=== PATIENT | male | born 1960 | race American Indian/Alaskan Native ===

== ENCOUNTER 2017-05-13 22:59 | Observation (INO) | payer OTHER ==
[2017-05-13 23:00] VITALS: BMI 36.3
--- NOTE | 2017-05-13 23:09 | ED PDOC ---
Arrival/HPI - General Time Seen by Provider: 05/13/17 23:04 Historian: Patient - History of Present Illness Narrative History of Present Illness (Text): 05/13/17 23:09 Ely Hines is a 57 year old male smoker, whose past medical history includes hyperlipidemia, who presents to the ED complaining of chest tightness for the past week. Patient states chest tightness is worsened with exertion, notes he took 1 nitroglycerin prior to arrival. Patient denies any shortness of breath, fever, chills, nausea, vomiting, diarrhea, neck pain, headache, dizziness, or any other complaints. PMD: Dr. Geena Hidalgo Time/Duration: 1 week Symptom Onset: Gradual Symptom Course: Unchanged Activities at Onset: Light Context: Home Past Medical History - Provider Review Nursing Documentation Reviewed: Yes - Infectious Disease Hx of Infectious Diseases: None - Tetanus Immunization Tetanus Immunization: Unknown - Psychiatric Hx Substance Use: No Family/Social History - Physician Review Nursing Documentation Reviewed: Yes Family/Social History: Unknown Family HX Smoking Status: Light Smoker < 10 Cigarettes Daily Hx Alcohol Use: No Hx Substance Use: No Allergies/Home Meds Allergies/Adverse Reactions: Allergies No Known Allergies Allergy (Verified 09/23/13 13:51) Home Medications: Home Meds Medication Instructions Recorded Confirmed Unobtainable 05/13/17 05/13/17 Review of Systems - Physician Review All systems were reviewed & negative as marked: Yes - Review of Systems Constitutional: Normal. absent: Fevers Eyes: Normal ENT: Normal Respiratory: Normal. absent: SOB, Cough Cardiovascular: Chest Pain Gastrointestinal: Normal. absent: Abdominal Pain, Diarrhea, Nausea, Vomiting Genitourinary Male: Normal. absent: Dysuria, Frequency, Hematuria, Urinary Output Changes Musculoskeletal: Normal. absent: Back Pain, Neck Pain Skin: Normal. absent: Rash Neurological: Normal. absent: Headache, Dizziness Endocrine: Normal Hemo/Lymphatic: Normal Psychiatric: Normal Physical Exam Vital Signs Reviewed: Yes Vital Signs Temp Pulse Resp BP Pulse Ox 05/14/17 01:05 72 18 135/77 97 05/14/17 00:05 74 18 142/89 96 05/13/17 23:08 98.5 F 80 18 163/84 H 97 Temperature: Afebrile Blood Pressure: Hypertensive Pulse: Regular Respiratory Rate: Normal Appearance: Positive for: Well-Appearing, Non-Toxic, Comfortable Pain Distress: None Mental Status: Positive for: Alert and Oriented X 3 - Systems Exam Head: Present: Atraumatic, Normocephalic Pupils: Present: PERRL Extroacular Muscles: Present: EOMI Conjunctiva: Present: Normal Mouth: Present: Moist Mucous Membranes Neck: Present: Normal Range of Motion Respiratory/Chest: Present: Clear to Auscultation, Good Air Exchange. No: Respiratory Distress, Accessory Muscle Use Cardiovascular: Present: Regular Rate and Rhythm, Normal S1, S2. No: Murmurs Abdomen: Present: Normal Bowel Sounds. No: Tenderness, Distention, Peritoneal Signs Back: Present: Normal Inspection Upper Extremity: Present: Normal Inspection. No: Cyanosis, Edema Lower Extremity: Present: Normal Inspection. No: Edema Neurological: Present: GCS=15, CN II-XII Intact, Speech Normal Skin: Present: Warm, Dry, Normal Color. No: Rashes Psychiatric: Present: Alert, Oriented x 3, Normal Insight, Normal Concentration Medical Decision Making ED Course and Treatment: 05/13/17 23:09 Impression: 57 year old male c/o chest tightness, worsened with exertion. Plan: -- EKG -- CXR -- Labs, cardiac enzymes -- Aspirin -- Nitroglycerin -- Reassess and disposition Progress Notes: Reviewed EKG, NSR at [address]-segment elevations or depressions, no T-wave inversions, normal intervals. 05/14/17 00:30 Reviewed radiology, CXR shows no acute processes. 05/14/17 01:[address] Jacques, medical record technician carton forming machine tender, who is aware and agrees with plan. 05/14/17 02:[address] Crawley, who is aware and agrees with plan. Accepts pt in to hospitalist service. Pt will go to Telemetry observation for chest pain. - Lab Interpretations Lab Results: 05/13/17 23:40 05/13/17 23:40 Lab Results 05/13/17 23:40: WBC 7.5, RBC 4.66, Hgb 14.3, Hct 41.3 L, MCV 88.6, MCH 30.7, MCHC 34.6, RDW 15.5 H, Plt Count 228, MPV 9.1 05/13/17 23:40: PT 10.7, INR 0.99, APTT 26.4 05/13/17 23:40: Sodium 143, Potassium 4.0, Chloride 108 H, Carbon Dioxide 25, Anion Gap 14, BUN 16, Creatinine 1.1, Est GFR ( Amer) > 60, Est GFR (Non- Af Amer) > 60, Random Glucose 130 H, Calcium 9.2, Total Bilirubin 0.5, AST 33, ALT 35, Alkaline Phosphatase 57, Lactate Dehydrogenase 429, Total Creatine Kinase 229, Troponin I 0.10 D, Total Protein 6.5, Albumin 3.8, Globulin 2.7, Albumin/Globulin Ratio 1.4 I have reviewed the lab results: Yes - RAD Interpretation Radiology Orders: 05/13/17 23:28 CHEST PORTABLE [RAD] Stat Nuclear Equipment Research Engineer: ED Physician - EKG Interpretation Interpreted by ED Physician: Yes Type: 12 lead EKG - Medication Orders Current Medication Orders: Discontinued Medications Aspirin (Aspirin) 325 mg PO ONCE STA Stop: 05/13/17 23:29 Last Admin: 05/13/17 23:44 Dose: 325 mg Nitroglycerin (Nitro-Bid 2% Oint) 1 ea TOP ONCE STA Stop: 05/13/17 23:34 Last Admin: 05/13/17 23:44 Dose: 1 ea - Scribe Statement The provider has reviewed the documentation as recorded by the Scribcuba Petit All medical record entries made by the Scribcuba were at my direction and personally dictated by me. I have reviewed the chart and agree that the record accurately reflects my personal performance of the history, physical exam, medical decision making, and the department course for this patient. I have also personally directed, reviewed, and agree with the discharge instructions and disposition. Disposition/Present on Arrival - Present on Arrival Any Indicators Present on Arrival: No History of DVT/PE: No History of Uncontrolled Diabetes: No Urinary Catheter: No History Surgical Site Infection Following: None - Disposition Have Diagnosis and Disposition been Completed?: Yes Diagnosis: Chest pain Disposition: HOSPITALIZED Disposition Time: 02:02 Patient Plan: Observation Condition: STABLE Discharge Instructions (ExitCare): Chest Pain (ED)
[2017-05-13] MEDS ORDERED: Nitroglycerin 2% Ointment Foilpak UD TOP STA (23:33)
[2017-05-14 00:02] LABS: HEMATOCRIT 41.3 % (42.0-52.0); MEAN CELL VOLUME 88.6 fl (80.0-105.0); MEAN CORPUSCULAR HEMOGLOBIN 30.7 pg (25.0-35.0); MEAN CORPUSCULAR HGB CONC 34.6 g/dl (31.0-37.0); MEAN PLATELET VOLUME 9.1 fl (7.0-11.0); RED CELL DISTRIBUTION WIDTH 15.5 % (11.5-14.5); WHITE BLOOD COUNT 7.5 10^3/ul (4.5-11.0)
[2017-05-14 00:04] LABS: ALB/GLOB RATIO 1.4 (1.1-1.8); ALKALINE PHOSPHATASE 57 U/L (38-126); ALT/SGPT 35 U/L (7-56); AST/SGOT 33 U/L (17-59); BILIRUBIN,TOTAL 0.5 mg/dL (0.2-1.3); BLOOD UREA NITROGEN 16 mg/dL (7-21); CALCIUM 9.2 mg/dL (8.4-10.5); CARBON DIOXIDE 25 mmol/L (21-33); CHLORIDE 108 mmol/L (98-107); GFR AFRICAN-AMERICAN > 60; GLUCOSE,RANDOM 130 mg/dL (70-110); INR 0.99 (0.93-1.08); PARTIAL THROMBOPLASTIN TIME 26.4 Seconds (23.7-30.8); SODIUM 143 mmol/L (132-148); TOTAL PROTEIN 6.5 g/dL (5.8-8.3)
--- NOTE | 2017-05-14 03:17 | CP.PCM.HP ---
Addendum entered and electronically signed by Zohaib Jacques DO 03:47: For A/P: Under first assessment: - Consider repeating CXR, as first one interpreted by myself seems to have some pulmonary venous congestion vs bronchitis Original Note: <Zohaib Jacques - Last Filed: 05/14/17 03:26> History of Present Illness - History of Present Illness History of Present Illness: 57 M w/ PMHx significant for HLD and recent bronchitis presented with 3-4 days duration of non-radiating, chest tightness of 5/10 severity, made worse and only present upon exertion. Patient states that simple tasks, like walking from his car and back caused the pain over the last few days. He has not taken anything for the pain. Patient states that he has never had this kind of pain before in his life. He states that he came into the hospital today because he started getting worried, but the tightness has not gotten better or worse. Pt denies f/ch/sob/n/v/d. He further denies diaphoresis, dizziness, badillo, or palpitations. PSHx: pt denies PMHx: HLD All: NKDA SocHx: Admits to drinking a bottle of wine every night; admits to smoking 15 cigarettes a day; admits to using recreational marijuana FamHx: Non-contributory Medications: Statin PMD: Saleeb Present on Admission - Present on Admission Any Indicators Present on Admission: No History of DVT/PE: No History of Uncontrolled Diabetes: No Urinary Catheter: No Decubitus Ulcer Present: No Review of Systems - Hematologic/Lymphatic Additional comments: ROS: Constitutional: pt denies fever, chills, generalized weakness ENT: pt denies dysphagia, otalgia, hearing deficit, rhinorrhea Eyes: pt denies sudden loss of vision, diplopia, blurred vision MSK: pt denies muscle stiffness, joint pain, extremity cramping Cardio: +SEE HPI Pulm: pt denies cough, hemoptysis, wheeze GI: pt denies loss of appetite, abdominal pain, constipation, melena, n/v/d : pt denies burning on urination, urinary frequency, hematuria, urinary urgency Neuro: pt denies paresis, paresthesia, dizziness, badillo, numbness, tingling Derm: pt denies skin changes, lesions, nail changes Endo: pt denies intolerance to heat/cold, diaphoresis, night sweats, polydipsia Psych: pt denies anxiety, depression, mood changes Past Patient History - Infectious Disease Hx of Infectious Diseases: None - Tetanus Immunizations Tetanus Immunization: Unknown - Past Social History Smoking Status: Light Smoker < 10 Cigarettes Daily - CARDIAC Hx Hypercholesterolemia: Yes - PSYCHIATRIC Hx Substance Use: No - SURGICAL HISTORY Hx Surgeries: No Meds Allergies/Adverse Reactions: Allergies Allergy/AdvReac Type Severity Reaction Status Date / Time No Known Allergies Allergy Verified 09/23/13 13:51 Physical Exam - Additional Findings Additional findings: Phys Exam: VS as below Constitutional: a&o x 4, nad Head and Neck: neck supple, no jvd, trachea midline, carotid midline, no cervical/head mass Eyes: mesha, nonicteric sclera, eom intact ENT: auditory acuity grossly intact, throat not congested, no nasal deformity Cardio: rrr, no m/r/g, no carotid bruit, nml s1, s2 Pulm: +R sided wheezes; no accessory muscle use, equal nml breath sounds bilaterally Abd: s/nt/nd, nbs x 4 q, no palpable masses Derm: no rashes, no ulcers, no lesions Extr: no edema, no cyanosis, no calf tenderness, no lesions, no varicosities Neuro: cn II-XII grossly intact, ue and le 5/5 muscle strength bilaterally, no los ue, le bilaterally and core Results - Vital Signs Recent Vital Signs: Last Vital Signs Temp 98.5 F 05/13/17 23:08 Pulse 72 05/14/17 01:05 Resp 18 05/14/17 01:05 BP 135/77 05/14/17 01:05 Pulse Ox 97 05/14/17 01:05 - Labs Result Diagrams: 05/13/17 23:40 05/13/17 23:40 Labs: Laboratory Results - last 24 hr 05/13/17 05/13/17 05/13/17 23:40 23:40 23:40 WBC 7.5 RBC 4.66 Hgb 14.3 Hct 41.3 L MCV 88.6 MCH 30.7 MCHC 34.6 RDW 15.5 H Plt Count 228 MPV 9.1 PT 10.7 INR 0.99 APTT 26.4 Sodium 143 Potassium 4.0 Chloride 108 H Carbon Dioxide 25 Anion Gap 14 BUN 16 Creatinine 1.1 Est GFR ( Amer) > 60 Est GFR (Non-Af Amer) > 60 Random Glucose 130 H Calcium 9.2 Total Bilirubin 0.5 AST 33 ALT 35 Alkaline Phosphatase 57 Lactate Dehydrogenase 429 Total Creatine Kinase 229 Troponin I 0.10 D Total Protein 6.5 Albumin 3.8 Globulin 2.7 Albumin/Globulin Ratio 1.4 - Imaging and Cardiology Chest x-ray Status: Report reviewed by me Assessment & Plan - Assessment and Plan (Free Text) Assessment: A/P: Chest Pain, 2/2 ACS VS Bronchitis VS Unknown Etiology - Tropes X 3 - EKG X 3 - Mg and Ph - Check Vitals q4 - O2 - HH Diet - Nitro and ASA given in ED Hx/O HLD - Need to call pharmacy to obtain medications Hx/O Gout - Need to call pharmacy to obtain medications GI/DVT PPHXS - Protonix/Heparin <Parveen Crawley - Last Filed: 05/14/17 07:28> Results - Vital Signs Recent Vital Signs: Last Vital Signs Temp 98.0 F 05/14/17 06:00 Pulse 70 05/14/17 06:00 Resp 20 05/14/17 06:00 BP 136/60 05/14/17 06:00 Pulse Ox 99 05/14/17 06:00 - Labs Result Diagrams: 05/14/17 05:20 05/13/17 23:40 Labs: Laboratory Results - last 24 hr 05/14/17 05:20 WBC 7.6 RBC 4.67 Hgb 14.1 Hct 41.5 L MCV 88.9 MCH 30.2 MCHC 34.0 RDW 15.8 H Plt Count 233 MPV 9.1 Gran % 53.0 Lymph % (Auto) 36.0 H Kaufman % (Auto) 8.4 H Eos % (Auto) 2.2 Baso % (Auto) 0.4 Gran # 4.04 Lymph # 2.8 Kaufman # 0.6 Eos # 0.2 Baso # 0.03 Attending/Attestation - Attestation I have personally seen and examined this patient.: Yes I have fully participated in the care of the patient.: Yes I have reviewed all pertinent clinical information: Yes Notes (Text): 05/14/17 07:27 Patient was seen when he was in -02. He was almost asleep. Agree with history, physical examination, assessment and plan.
[2017-05-14 05:43] LABS: BASO # 0.03 K/mm3 (0.0-2.0); BASO % 0.4 % (0.0-3.0); EOS # 0.2 (0.0-0.7); EOS % 2.2 % (1.5-5.0); GRAN # 4.04 (1.4-6.5); HEMATOCRIT 41.5 % (42.0-52.0); LYMPH # 2.8 (1.2-3.4); MEAN CELL VOLUME 88.9 fl (80.0-105.0); MEAN CORPUSCULAR HEMOGLOBIN 30.2 pg (25.0-35.0); MEAN PLATELET VOLUME 9.1 fl (7.0-11.0); MONO # 0.6 (0.1-0.6); MONO % 8.4 % (1.0-6.0); RED CELL DISTRIBUTION WIDTH 15.8 % (11.5-14.5); WHITE BLOOD COUNT 7.6 10^3/ul (4.5-11.0)
[2017-05-14 07:19] LABS: TROPONIN I 0.11 ng/mL
[2017-05-14 07:24] LABS: ALB/GLOB RATIO 1.4 (1.1-1.8); ALKALINE PHOSPHATASE 67 U/L (38-126); ALT/SGPT 32 U/L (7-56); AST/SGOT 20 U/L (17-59); BILIRUBIN,TOTAL 0.4 mg/dL (0.2-1.3); BLOOD UREA NITROGEN 14 mg/dL (7-21); CALCIUM 8.9 mg/dL (8.4-10.5); CARBON DIOXIDE 25 mmol/L (21-33); CHLORIDE 111 mmol/L (98-107); GFR AFRICAN-AMERICAN > 60; GLUCOSE,RANDOM 116 mg/dL (70-110); PHOSPHOROUS 3.9 mg/dL (2.5-4.5); SODIUM 143 mmol/L (132-148)
[2017-05-14 07:44] LABS: CHOLESTEROL 186 mg/dL (130-200)
--- NOTE | 2017-05-14 10:54 | RAD ---
HISTORY: pain COMPARISON: Comparison chest 10/09/2016 FINDINGS: Note that the medial aspect right lung apex partially obscured by overlying facial soft tissue- mandible artifact LUNGS: Mild curvilinear atelectasis left lung base. PLEURA: No significant pleural effusion identified, no pneumothorax apparent. CARDIOVASCULAR: Normal. OSSEOUS STRUCTURES: No significant abnormalities. VISUALIZED UPPER ABDOMEN: Normal. OTHER FINDINGS: None. IMPRESSION: No focal consolidation. Minor curvilinear atelectasis left lung base
[2017-05-14] MEDS ORDERED: Lidocaine 2% Inj (20ml) ONE (11:52)
[2017-05-14] MEDS ORDERED: Phenylephrine 10 mg/ml Inj ONE (11:52)
[2017-05-14] MEDS ORDERED: Iohexol 350mgl/ml 50 ML ONE (11:52)
[2017-05-14] MEDS ORDERED: Nitroglycerin 50mg in D5W 50 MG/250 ML BOTTLE IV ONE (11:53)
[2017-05-14] MEDS ORDERED: Midazolam 2 MG/2 ML VIAL ONE (12:20)
[2017-05-14] MEDS ORDERED: Eptifibatide 20 mg/10mL Inj IVP ONE (12:42)
[2017-05-14] MEDS ORDERED: Iohexol 350 MG/100 ML VIAL ONE (12:48)
[2017-05-14] MEDS ORDERED: Sodium Chloride 0.9% 1,000 ML IV SCH (13:30)
--- NOTE | 2017-05-14 14:55 | CARD ---
APPROVED REPORT EKG Measurement Heart [id number] <Conclusion> Sinus bradycardia Otherwise normal ECG
--- NOTE | 2017-05-14 16:17 | CON ---
DATE: 05/14/2017 CARDIOLOGY CONSULTATION REASON FOR CONSULTATION AND FOLLOWUP: Acute coronary syndrome, unstable angina. BRIEF CLINICAL HISTORY: This is a 57-year-old male with past medical history of obesity, hypertension, hyperlipidemia, noncompliant with medication, was supposed to take antihypertensive medication and anti-cholesterol medication, being followed with Dr. Corey Hoffman and stopped taking two months, came into the emergency room with one week history of chest pain. First episode happened a week ago, then got better, but last three days the patient kept having chest pain, off and on with minimal activity. Today, the patient drove to the hospital. While coming, he felt that he has got a heart attack with severe chest pain, admitted here to the ER. First troponin was 0.10, next was 0.11. PAST MEDICAL HISTORY: Significant for hypertension, hyperlipidemia, prediabetic not on medications. SOCIAL HISTORY: Active tobacco abuse, quarter to a pack for more than 30 years, drinks wine one bottle everyday. FAMILY HISTORY: Noncontributory, but say that mother with congestive heart failure. PAST SURGICAL HISTORY: Nothing significant. CURRENT MEDICATION: None. Supposed to take blood pressure medication, sugar medications, he is a peridiabetic, and cholesterol medication, but does not take last two month. REVIEW OF SYSTEMS: As per HPI. PHYSICAL EXAMINATION: As follows: VITAL SIGNS: Temperature afebrile, heart rate 88, and blood pressure 113/72. HEENT: PERRLA. Extraocular muscles are intact. NECK: Supple. No carotid or thyromegaly. CHEST: Clear to auscultation. HEART: S1 and S2 regular. ABDOMEN: Soft. EXTREMITIES: Clubbing and cyanosis negative. LABORATORY DATA: WBC 7.6, hemoglobin 14.1, hematocrit 41.5, and platelet count 233. Chemistry shows sodium 143, potassium 4, chloride 111, carbon dioxide 25, anion gap of 11, BUN 14, creatinine 1.6, blood sugar 116. Troponin 0.11. IMPRESSION: Unstable angina, diabetes, hypertension, hyperlipidemia, obesity, body mass index of 49.2 kg per meter square, and unstable angina. RECOMMENDATION: Discussed with the patient in length. The patient agreed, we will proceed for cardiac catheterization. We will aspirin. Further recommendation after cardiac catheterization. We will follow with you. Thank you for providing me the opportunity in taking care of Donny Graves. Charbel Vincent MD
[2017-05-14] MEDS ORDERED: Potassium Chloride 20 mEq ER Tab PO ONE (17:00)
[2017-05-14 17:15] LABS: BASO # 0.01 K/mm3 (0.0-2.0); BASO % 0.1 % (0.0-3.0); EOS # 0.2 (0.0-0.7); EOS % 2.1 % (1.5-5.0); GRAN # 3.62 (1.4-6.5); GRAN % 50.4 % (50.0-68.0); HEMATOCRIT 41.3 % (42.0-52.0); LYMPH # 2.8 (1.2-3.4); LYMPH % 39.2 % (22.0-35.0); MEAN CELL VOLUME 88.6 fl (80.0-105.0); MEAN CORPUSCULAR HEMOGLOBIN 30.5 pg (25.0-35.0); MEAN CORPUSCULAR HGB CONC 34.4 g/dl (31.0-37.0); MEAN PLATELET VOLUME 9.1 fl (7.0-11.0); MONO # 0.6 (0.1-0.6); MONO % 8.2 % (1.0-6.0); RED CELL DISTRIBUTION WIDTH 15.7 % (11.5-14.5); WHITE BLOOD COUNT 7.2 10^3/ul (4.5-11.0)
[2017-05-14 17:19] LABS: BLOOD UREA NITROGEN 12 mg/dL (7-21); CARBON DIOXIDE 27 mmol/L (21-33); CHLORIDE 107 mmol/L (98-107); GFR AFRICAN-AMERICAN > 60; GLUCOSE,RANDOM 105 mg/dL (70-110); POTASSIUM 3.8 mmol/L (3.6-5.0); SODIUM 139 mmol/L (132-148)
[2017-05-14] MEDS ORDERED: Bacitracin 500 Units/gm Oint Foilpak UD ONE (17:42)
--- NOTE | 2017-05-14 18:31 | CARD ---
APPROVED REPORT Procedure(s) performed: Left Heart Catheterization PTCA with Stenting of Proximal RCA with SHREE PTCA with Stenting of Mid RCA with SHREE HISTORY The patient is a 57 year-old male with a history of : chronic lung disease, tobacco history() : The patient is a current smoker , dyslipidemia , Admitted with ACS borderline troponin 0.10 and 0.11. INDICATION The indication(s) include : unstable angina . CASE TECHNIQUE The patient was brought urgently to the Cardiac Catheterization Laboratory in a fasting state and was prepped and draped in a sterile manner. The left femoral groin was infiltrated with 2% Lidocaine subcutaneous anesthesia. A 6 Fr Glidesheath (Radial) sheath was inserted into the left radial artery without difficulty. Coronary angiography was performed using coronary diagnostic catheters. The left coronary system was accessed and visualized with a Diagnostic ,5 Fr JL 4 catheter. The right coronary system was accessed and visualized with a Diagnostic ,5 Fr JR 3.5 catheter. The left ventricle was accessed and visualized with a 5 Fr JR 3.5 catheter. Left ventricular/Aortic Valve gradient assessed on pullback. Left ventriculogram was performed in GERMAN projection. Closure device was deployed with a Fr TR Band (Large) without any complications. The patient tolerated the procedure well and there were no complications associated with the procedure. Vessel Analysis The patient's coronary anatomy is right dominant. The left main coronary artery is a large size vessel . The left main bifurcates to the left anterior descending and circumflex. The left anterior descending artery is a medium size vessel with diffuse calcification noted throughout this vessel and without significant stenosis. The first diagonal branch is a medium size vessel with diffuse calcification noted throughout this vessel and without significant stenosis. The second diagonal branch is a small size vessel with diffuse calcification noted throughout this vessel and without significant stenosis. The third diagonal branch is a small size vessel with diffuse calcification noted throughout this vessel and without significant stenosis. The circumflex artery is a medium size vessel with diffuse calcification noted throughout this vessel and without significant stenosis. The first obtuse marginal branch is a medium size vessel with diffuse calcification noted throughout this vessel and without significant stenosis. The second obtuse marginal branch is a medium size vessel with diffuse calcification noted throughout this vessel and without significant stenosis. The right coronary artery is a large size vessel with diffuse calcification noted throughout this vessel and with significant stenosis. There is a 99% stenosis in the proximal segment. another stenosis in Mid RCA 80% The right posterior descending artery is a large size vessel with diffuse calcification noted throughout this vessel and without significant stenosis. The right posterolateral branch is a large size vessel with diffuse calcification noted throughout this vessel and without significant stenosis. Left Ventricle The left ventricle is enlarged in size with normal contractility. There was no cardiomyopathy. The left ventricular ejection fraction is estimated to be 55%. The left ventricular end diastolic pressure is 20 mmHg. There was no gradient across the aortic valve upon pullback. PCI Technique Lesion Anticoagulation was achieved with Heparin. Percutaneous coronary intervention was performed on the proximal right coronary artery. The lesion stenosis prior to intervention was 99% with DEBRA 2 flow. A 6 Fr JR 3.5 Guide Catheter was used to engage the ostium. BALLOON DILATION A Balloon catheter 2.5 x 10 mm Sprinter RX was inserted and inflated up to 10.00atm for 8seconds. STENT DEPLOYMENT A drug-eluting stent 4.0 x 18 mm Resolute SHREE was inserted and inflated up to 10.00atm for 20seconds. POST STENT DEPLOYMENT BALLOON DILATION A Balloon catheter 4.0 x 12 mm Sprinter NC was inserted and inflated up to 14.00atm for 15seconds. Final angiography reveals 0 % stenosis with DEBRA 3 flow. PCI Technique Lesion 2 Percutaneous Coronary Intervention was performed on the mistal right coronary artery. The lesion stenosis prior to intervention was 80% with DEBRA 2 flow. A 6 Fr JR 3.5 Guide Catheter was used to engage the ostium. BALLOON DILATION A Balloon catheter 2.5 x 10 mm Sprinter RX was inserted and inflated up to 10.00atm for 1seconds. STENT DEPLOYMENT A drug-eluting stent 4.0 x 18 mm Resolute SHREE was inserted and inflated up to 10.00atm for 15seconds. POST STENT DEPLOYMENT BALLOON DILATION A Balloon catheter 4.0 x 12 mm Sprinter NC was inserted and inflated up to 14.00atm for 15seconds. Final angiography reveals 0 % stenosis with DEBRA 3 flow. Conclusion Single vessel Critical Diz in Proximal and distal RCA Preserved LV FX. Ef-55%. EDP-20 Successful PTCA with SHREE of Proximal and Mid RCA Recommendations Smoking Cessation Cardiac Rehabilitation ReferralDaily ASA with Plavix for at least one year Aggressive Medical TherapyCardiac Risk Reduction Program Weight Loss Reduction Program CC; Dr. Corey Hoffman.
[2017-05-15 06:03] VITALS: O2SAT 95
[2017-05-15 07:42] LABS: BASO # 0.02 K/mm3 (0.0-2.0); BASO % 0.3 % (0.0-3.0); EOS # 0.1 (0.0-0.7); EOS % 1.4 % (1.5-5.0); GRAN # 4.96 (1.4-6.5); GRAN % 62.8 % (50.0-68.0); HEMATOCRIT 44.1 % (42.0-52.0); LYMPH # 2.1 (1.2-3.4); LYMPH % 26.1 % (22.0-35.0); MEAN CELL VOLUME 88.2 fl (80.0-105.0); MEAN CORPUSCULAR HEMOGLOBIN 30.4 pg (25.0-35.0); MEAN CORPUSCULAR HGB CONC 34.5 g/dl (31.0-37.0); MEAN PLATELET VOLUME 9.2 fl (7.0-11.0); MONO # 0.7 (0.1-0.6); MONO % 9.4 % (1.0-6.0); RED CELL DISTRIBUTION WIDTH 15.4 % (11.5-14.5); WHITE BLOOD COUNT 7.9 10^3/ul (4.5-11.0)
[2017-05-15 07:49] LABS: ALB/GLOB RATIO 1.3 (1.1-1.8); ALKALINE PHOSPHATASE 74 U/L (38-126); ALT/SGPT 41 U/L (7-56); AST/SGOT 26 U/L (17-59); BILIRUBIN,TOTAL 1.1 mg/dL (0.2-1.3); BLOOD UREA NITROGEN 14 mg/dL (7-21); CALCIUM 9.4 mg/dL (8.4-10.5); CARBON DIOXIDE 28 mmol/L (21-33); CHLORIDE 104 mmol/L (95-110); GFR AFRICAN-AMERICAN > 60; GLUCOSE,RANDOM 101 mg/dL (70-110); MAGNESIUM 1.8 mg/dL (1.7-2.2); PHOSPHOROUS 3.6 mg/dL (2.5-4.5); POTASSIUM 3.9 mmol/L (3.6-5.0); SODIUM 140 mmol/L (132-148); TOTAL PROTEIN 6.7 g/dL (5.8-8.3)
--- NOTE | 2017-05-15 09:02 | CARD ---
APPROVED REPORT EXAM: Two-dimensional and M-mode echocardiogram with Doppler and color Doppler. Other Information Quality : AverageRhythm : INDICATION Chest Pain 2D DIMENSIONS Left Atrium (2D)3.6 (1.6-4.0cm)IVSd1.2 (0.7-1.1cm) LVDd4.3 (3.9-5.9cm)PWd1.1 (0.7-1.1cm) LVDs2.9 (2.5-4.0cm)FS (%) 33.5 % LVEF (%)62.0 (>50%) M-Mode DIMENSIONS Aortic Root3.30 (2.2-3.7cm)Aortic Cusp Exc.2.10 (1.5-2.0cm) Aortic Valve AoV Peak Lisetmjq844.0cm/s Mitral Valve MV E Skxhjeff45.7cm/sMV A Hmbavdol62.3cm/sE/A ratio0.8 TDI E/Lateral E'0.0E/Medial E'0.0 Tricuspid Valve TR Peak [id number]/sRAP [id number] Peak Gr.31mmHg [id number] LEFT VENTRICLE The left ventricle is normal size. There is normal left ventricular wall thickness. The left ventricular function is normal. The left ventricular ejection fraction is within the normal range. There is normal LV segmental wall motion. RIGHT VENTRICLE The right ventricle is not well visualized. ATRIA The left atrium size is normal. The right atrium size is normal. The interatrial septum is intact with no evidence for an atrial septal defect. AORTIC VALVE The aortic valve is normal in structure. MITRAL VALVE The mitral valve is normal in structure. TRICUSPID VALVE The tricuspid valve is normal in structure. There is trace to mild tricuspid regurgitation. PULMONIC VALVE The pulmonary valve is normal in structure. GREAT VESSELS The aortic root is normal in size. PERICARDIAL EFFUSION There is no pericardial effusion. <Conclusion> The left ventricle is normal size. There is normal left ventricular wall thickness. The left ventricular function is normal.
--- NOTE | 2017-05-15 09:23 | CARD ---
APPROVED REPORT EKG Measurement Heart [id number] <Conclusion> Normal sinus rhythm Normal ECG No change
[2017-05-15] MEDS ORDERED: Metoprolol Succinate 25 mg XL Tab PO SCH (10:00)
[2017-05-15 12:25] VITALS: BP 143/88; PULSE 59; RESP 18; TEMP 98.3
--- NOTE | 2017-05-15 13:42 | CP.PCM.DIS ---
<Vikas Amato - Last Filed: 05/16/17 03:36> Provider - Provider Date of Admission: 05/14/17 02:01 Attending physician: Teagan Millard MD Primary care physician: Corey Hoffman MD Consults: Cardio: Carlton Time Spent in preparation of Discharge (in minutes): 45 Hospital Course - Lab Results Lab Results: Most Recent Lab Values WBC 7.9 10^3/ul (4.5-11.0) 05/15/17 07:30 RBC 5.00 10^6/uL (3.5-6.1) 05/15/17 07:30 Hgb 15.2 g/dL (14.0-18.0) 05/15/17 07:30 Hct 44.1 % (42.0-52.0) 05/15/17 07:30 MCV 88.2 fl (80.0-105.0) 05/15/17 07:30 MCH 30.4 pg (25.0-35.0) 05/15/17 07:30 MCHC 34.5 g/dl (31.0-37.0) 05/15/17 07:30 RDW 15.4 % (11.5-14.5) H 05/15/17 07:30 Plt Count 227 10^3/uL (120.0-450.0) 05/15/17 07:30 MPV 9.2 fl (7.0-11.0) 05/15/17 07:30 Gran % 62.8 % (50.0-68.0) 05/15/17 07:30 Lymph % (Auto) 26.1 % (22.0-35.0) 05/15/17 07:30 Bay % (Auto) 9.4 % (1.0-6.0) H 05/15/17 07:30 Eos % (Auto) 1.4 % (1.5-5.0) L 05/15/17 07:30 Baso % (Auto) 0.3 % (0.0-3.0) 05/15/17 07:30 Gran # 4.96 (1.4-6.5) 05/15/17 07:30 Lymph # 2.1 (1.2-3.4) 05/15/17 07:30 Bay # 0.7 (0.1-0.6) H 05/15/17 07:30 Eos # 0.1 (0.0-0.7) 05/15/17 07:30 Baso # 0.02 K/mm3 (0.0-2.0) 05/15/17 07:30 PT 10.7 Seconds (9.9-11.8) 05/13/17 23:40 INR 0.99 (0.93-1.08) 05/13/17 23:40 APTT 26.4 Seconds (23.7-30.8) 05/13/17 23:40 Sodium 140 mmol/L (132-148) 05/15/17 07:30 Potassium 3.9 mmol/L (3.6-5.0) 05/15/17 07:30 Chloride 104 mmol/L (95-110) 05/15/17 07:30 Carbon Dioxide 28 mmol/L (21-33) 05/15/17 07:30 Anion Gap 12 (10-20) 05/15/17 07:30 BUN 14 mg/dL (7-21) 05/15/17 07:30 Creatinine 1.0 mg/dL (0.5-1.4) 05/15/17 07:30 Est GFR ( Amer) > 60 05/15/17 07:30 Est GFR (Non-Af Amer) > 60 05/15/17 07:30 Random Glucose 101 mg/dL (70-110) 05/15/17 07:30 Hemoglobin A1c 6.2 % (4.2-6.5) 05/15/17 07:30 Calcium 9.4 mg/dL (8.4-10.5) 05/15/17 07:30 Phosphorus 3.6 mg/dL (2.5-4.5) 05/15/17 07:30 Magnesium 1.8 mg/dL (1.7-2.2) 05/15/17 07:30 Total Bilirubin 1.1 mg/dL (0.2-1.3) 05/15/17 07:30 AST 26 U/L (17-59) 05/15/17 07:30 ALT 41 U/L (7-56) 05/15/17 07:30 Alkaline Phosphatase 74 U/L (38-126) 05/15/17 07:30 Lactate Dehydrogenase 264 U/L (333-699) L 05/14/17 16:55 Total Creatine Kinase 186 U/L (35-230) 05/14/17 16:55 Troponin I 0.10 ng/mL 05/14/17 16:55 Total Protein 6.7 g/dL (5.8-8.3) 05/15/17 07:30 Albumin 3.8 g/dL (3.0-4.8) 05/15/17 07:30 Globulin 2.9 gm/dL 05/15/17 07:30 Albumin/Globulin Ratio 1.3 (1.1-1.8) 05/15/17 07:30 Triglycerides 115 mg/dL (35-160) 05/14/17 06:30 Cholesterol 186 mg/dL (130-200) 05/14/17 06:30 LDL Cholesterol Direct 126 mg/dL (0-129) 05/14/17 06:30 HDL Cholesterol 46 mg/dL (29-60) 05/14/17 06:30 TSH 3rd Generation 2.01 mIU/mL (0.46-4.68) 05/15/17 07:30 - Hospital Course Hospital Course: Upon Admission: 57yo M with PMHx of HLD here for evaluation of chest pain off and on for the past week, worse with exertion. Patient denies any family cardiac history. Admits to tobacco use and etoh use. EKG with no acute findings. Troponins indeterminate 0.10, 0.11. Cardiology was consulted. Patient taken for CATH with evidence of RCA 99% occlusion. Proximal and mid RCA stents placed (SHREE). Patient was started on ASA/Plavix. He was also started on lisinopril, Atorvastatin, metoprolol. No complications observed post-cath. Patient was cleared for discharge with close followup. All findings and recommendations were discussed with the patient. Prescriptions sent to [facility] pharmacy. Patient to follow up with his PMD and Cardiology upon discharge. Patient understands and agrees with plan. All questions and concerns addressed. 1. Unstable Angina. 99% RCA occlusion. SHREE x2. Dual platelet therapy initiated. Lisinopril, Metoprolol. 2. Hx of HLD. Atorvastatin 3. Hx of tobacco abuse. Cessation counseling Upon Discharge: Patient is cleared for discharge as per Dr. Millard 1. Follow up with your primary care physician, Dr. Hoffman, within 1 week 2. Follow up with Cardiology, Call for appointment 3. Take meds as directed. (Prescriptions sent to [facility]acy) 4. Return to the ER with any concerning symptoms. New Prescriptions: 1. Aspirin 81mg PO Daily 30/0 2. Lipitor 40mg PO Dinner 30/0 3. Lisinopril 5mg PO Daily 30/0 4. Metoprolol XL 25mg PO Daily 30/0 5. Plavix 75mg PO Daily 30/0 Discharge Exam - Head Exam Head Exam: ATRAUMATIC, NORMAL INSPECTION, NORMOCEPHALIC - Eye Exam Eye Exam: EOMI, Normal appearance - ENT Exam ENT Exam: Mucous Membranes Moist - Respiratory Exam Respiratory Exam: Clear to PA & Lateral, NORMAL BREATHING PATTERN. absent: Decreased Breath Sounds, Rales, Rhonchi, Wheezes, Respiratory Distress - Cardiovascular Exam Cardiovascular Exam: REGULAR RHYTHM, RRR, +S1, +S2. absent: JVD - GI/Abdominal Exam GI & Abdominal Exam: Normal Bowel Sounds, Soft. absent: Distended, Firm, Guarding, Tenderness - Extremities Exam Extremities exam: normal inspection - Back Exam Back exam: NORMAL INSPECTION - Neurological Exam Neurological exam: Alert, CN II-XII Intact, Oriented x3 - Psychiatric Exam Psychiatric exam: Normal Affect, Normal Mood - Skin Skin Exam: Dry, Intact, Normal Color, Warm Discharge Plan - Discharge Medications Prescriptions: Aspirin [Aspirin Chewable] 81 mg PO DAILY #30 chew Atorvastatin [Lipitor] 40 mg PO DIN #30 tab Clopidogrel [Plavix] 75 mg PO DAILY #30 tab Lisinopril [Zestril] 5 mg PO DAILY #30 tab Metoprolol Succinate [Toprol XL] 25 mg PO DAILY #30 tab - Follow Up Plan Condition: STABLE Disposition: HOME/ ROUTINE Instructions: Myocardial Infarction (DC), Coronary Artery Disease (DC), Chest Pain (DC), How to Stop Smoking (DC), Heart Healthy Diet (DC), Heart Catheterization (DC), Coronary Intravascular Stent Placement (DC) Additional Instructions: Patient is cleared for discharge as per Dr. Millard 1. Follow up with your primary care physician, Dr. Hoffman, within 1 week 2. Follow up with Cardiology, Call for appointment 3. Take meds as directed. (Prescriptions sent to [facility]) 4. Return to the ER with any concerning symptoms. New Prescriptions: 1. Aspirin 81mg PO Daily 30/0 2. Lipitor 40mg PO Dinner 30/0 3. Lisinopril 5mg PO Daily 30/0 4. Metoprolol XL 25mg PO Daily 30/0 5. Plavix 75mg PO Daily 30/0 Referrals: Corey Hoffman MD [Primary Care Provider] - Charbel Vnicent MD [Staff Provider] - <Teagan Millard - Last Filed: 05/16/17 07:34> Provider - Provider Date of Admission: 05/14/17 02:01 Attending physician: Teagan Millard MD Primary care physician: Corey Hoffman MD Hospital Course - Lab Results Lab Results: Most Recent Lab Values WBC 7.9 10^3/ul (4.5-11.0) 05/15/17 07:30 RBC 5.00 10^6/uL (3.5-6.1) 05/15/17 07:30 Hgb 15.2 g/dL (14.0-18.0) 05/15/17 07:30 Hct 44.1 % (42.0-52.0) 05/15/17 07:30 MCV 88.2 fl (80.0-105.0) 05/15/17 07:30 MCH 30.4 pg (25.0-35.0) 05/15/17 07:30 MCHC 34.5 g/dl (31.0-37.0) 05/15/17 07:30 RDW 15.4 % (11.5-14.5) H 05/15/17 07:30 Plt Count 227 10^3/uL (120.0-450.0) 05/15/17 07:30 MPV 9.2 fl (7.0-11.0) 05/15/17 07:30 Gran % 62.8 % (50.0-68.0) 05/15/17 07:30 Lymph % (Auto) 26.1 % (22.0-35.0) 05/15/17 07:30 Bay % (Auto) 9.4 % (1.0-6.0) H 05/15/17 07:30 Eos % (Auto) 1.4 % (1.5-5.0) L 05/15/17 07:30 Baso % (Auto) 0.3 % (0.0-3.0) 05/15/17 07:30 Gran # 4.96 (1.4-6.5) 05/15/17 07:30 Lymph # 2.1 (1.2-3.4) 05/15/17 07:30 Bay # 0.7 (0.1-0.6) H 05/15/17 07:30 Eos # 0.1 (0.0-0.7) 05/15/17 07:30 Baso # 0.02 K/mm3 (0.0-2.0) 05/15/17 07:30 PT 10.7 Seconds (9.9-11.8) 05/13/17 23:40 INR 0.99 (0.93-1.08) 05/13/17 23:40 APTT 26.4 Seconds (23.7-30.8) 05/13/17 23:40 Sodium 140 mmol/L (132-148) 05/15/17 07:30 Potassium 3.9 mmol/L (3.6-5.0) 05/15/17 07:30 Chloride 104 mmol/L (95-110) 05/15/17 07:30 Carbon Dioxide 28 mmol/L (21-33) 05/15/17 07:30 Anion Gap 12 (10-20) 05/15/17 07:30 BUN 14 mg/dL (7-21) 05/15/17 07:30 Creatinine 1.0 mg/dL (0.5-1.4) 05/15/17 07:30 Est GFR ( Amer) > 60 05/15/17 07:30 Est GFR (Non-Af Amer) > 60 05/15/17 07:30 Random Glucose 101 mg/dL (70-110) 05/15/17 07:30 Hemoglobin A1c 6.2 % (4.2-6.5) 05/15/17 07:30 Calcium 9.4 mg/dL (8.4-10.5) 05/15/17 07:30 Phosphorus 3.6 mg/dL (2.5-4.5) 05/15/17 07:30 Magnesium 1.8 mg/dL (1.7-2.2) 05/15/17 07:30 Total Bilirubin 1.1 mg/dL (0.2-1.3) 05/15/17 07:30 AST 26 U/L (17-59) 05/15/17 07:30 ALT 41 U/L (7-56) 05/15/17 07:30 Alkaline Phosphatase 74 U/L (38-126) 05/15/17 07:30 Lactate Dehydrogenase 264 U/L (333-699) L 05/14/17 16:55 Total Creatine Kinase 186 U/L (35-230) 05/14/17 16:55 Troponin I 0.10 ng/mL 05/14/17 16:55 Total Protein 6.7 g/dL (5.8-8.3) 05/15/17 07:30 Albumin 3.8 g/dL (3.0-4.8) 05/15/17 07:30 Globulin 2.9 gm/dL 05/15/17 07:30 Albumin/Globulin Ratio 1.3 (1.1-1.8) 05/15/17 07:30 Triglycerides 115 mg/dL (35-160) 05/14/17 06:30 Cholesterol 186 mg/dL (130-200) 05/14/17 06:30 LDL Cholesterol Direct 126 mg/dL (0-129) 05/14/17 06:30 HDL Cholesterol 46 mg/dL (29-60) 05/14/17 06:30 TSH 3rd Generation 2.01 mIU/mL (0.46-4.68) 05/15/17 07:30 Attending/Attestation - Attestation I have personally seen and examined this patient.: Yes I have fully participated in the care of the patient.: Yes I have reviewed all pertinent clinical information, including history, physical exam and plan: Yes Notes (Text): 05/15/17 57 year old male with past medical history of dyslipidemia and smoker who presented with complaint of chest tightness. He was found to have indeterminant troponin levels. He was seen by cardiology and underwent cardiac cath with findings of RCA 99% occlusion. Proximal and mid RCA stents were placed. Patient is discharged home on aspirin, plavix, statin, metoprolol and lisinopril. Counselled on smoking cessation. 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 Teagan Millard MD Hospitalist.
--- NOTE | 2017-05-15 15:09 | PN ---
DATE: 05/15/2017 REASON FOR CONSULTATION AND FOLLOWUP: Acute coronary syndrome, unstable angina. SUBJECTIVE: The patient is a 57-year-old female. Denies any chest pain, shortness of breath, or any palpitation. OBJECTIVE: The patient is lying flat in the bed, networking with iPhone. PHYSICAL EXAMINATION: As follows: VITAL SIGNS: Temperature afebrile, heart rate 64, blood pressure 144/83. HEENT: PERRLA. Extraocular muscles are intact. NECK: Supple. No carotid bruits. No thyromegaly. LUNGS: Chest clear to auscultation. HEART: S1 and S2 regular. ABDOMEN: Soft. EXTREMITIES: Clubbing and cyanosis negative. LABORATORY DATA: Blood workup as follows: WBC 7.9, hemoglobin 15.9, hematocrit 44.1, and platelet count 227. Chemistry shows sodium 140, potassium 3.9, chloride 104, carbon dioxide 28, anion gap of 12, BUN of 14, and creatinine 1.0. Total protein , albumin 3.8, albumin-globulin ratio 1.3. IMPRESSION: 1. Acute coronary syndrome. 2. Unstable angina. 3. Status post percutaneous transluminal coronary angioplasty of proximal right coronary artery 99% of 0 and mid right coronary artery 80% of 0, two drug-eluting stent was placed. Admitted with unstable angina, borderline diabetes, hypertension, hyperlipidemia, and obesity. RECOMMENDATION: Emphasized weight reduction modification, lifestyle modification. Risk factor of coronary artery disease. Complete cessation of smoking and complete abstinence of alcohol recommended. The patient had echocardiography done yesterday and that shows a normal LV size, normal LV thickness, and normal mitral and tricuspid valve reported. There is mild tricuspid regurgitation reported. Right ventricular systolic pressure of 41. Emphasized the patient to be complete compliance with medication mandatory. Continue aspirin and Plavix for one year, preferably extended period of the time. Continue atorvastatin and lisinopril. We will put low dose of beta-alberto as well. Thank you providing us the opportunity in taking care of patient Ely Hines. We will discontinue telemetry. Charbel Vincent MD
== END 2017-05-15 15:39 | disposition home or self-care (01) ==
LOC: ED 22:59 → ERH 05-14 02:01 → 2RNO 05-14 03:08 → 2RSO 05-14 08:07
PROVIDERS: ADMIT Internal Medicine; ATTEND Internal Medicine
DX: I25.110 Atherosclerotic heart disease of native coronary artery with unstable angina pectoris (principal); I24.0 Acute coronary thrombosis not resulting in myocardial infarction; E78.5 Hyperlipidemia, unspecified; M10.9 Gout, unspecified; I10 Essential (primary) hypertension; R73.03 Prediabetes; F17.210 Nicotine dependence, cigarettes, uncomplicated; I07.1 Rheumatic tricuspid insufficiency; E66.9 Obesity, unspecified; Z68.37 Body mass index [BMI] 37.0-37.9, adult; Z91.14 Patient's other noncompliance with medication regimen
CPT/HCPCS: 36415; 71010; 80053; 80061; 82550; 83036; 83615; 83735; 84100; 84443; 84484; 85025; 85027; 85175; 85610; 85730; 93005; 93306; 93458; 99152; 99153; 99285; C1725; C1769; C1874; C1887; C9113; C9600; G0378; J1327; J1644; J1940; J2250; J3010; J7040; Q9967

== ENCOUNTER 2018-05-16 16:47 | Emergency (ER) | payer SELFPAY ==
[2018-05-16 17:11] VITALS: TEMP 99.2
[2018-05-16] MEDS ORDERED: Albuterol-Ipratrop 3 mg / 0.5 (3 ml) UD IH STA ×3 (17:16→18:29)
--- NOTE | 2018-05-16 17:27 | ED PDOC ---
Arrival/HPI - General Time Seen by Provider: 05/16/18 17:14 Historian: Patient - History of Present Illness Narrative History of Present Illness (Text): 05/16/18 17:26 58 year old male, with past medical history of stent placement, bronchitis, and HLD, presents to the Emergency Department complaining of left sided midsternal chest pain since today. Patient states intermittent episodes of non-radiating and non-exertional chest pressure but none now. Patient denies any associated leg swelling, neck pain or back pain. Patient informs non-compliance with his medications and denies taking any aspirin today. Additionally, patient informs non-productive cough for past 3 days without any improvement to symptoms. Patient denies any fever, chills, nausea, vomiting, diarrhea, abdominal pain, shortness of breath, headache, dizziness or any other complaints. Patient admits to smoking cigarettes daily. PMD: Dr. Hoffman Dry Chain Worker: Dr. Vincent Time/Duration: 4-6 hours Symptom Onset: Gradual Symptom Course: Unchanged Quality: Pressure Activities at Onset: Light Context: Home Past Medical History - Provider Review Nursing Documentation Reviewed: Yes - Infectious Disease Hx of Infectious Diseases: None - Tetanus Immunization Tetanus Immunization: Unknown - Cardiac Hx Cardiac Disorders: Yes - Pulmonary Hx Bronchitis: Yes - HEENT Hx HEENT Disorder: No - Renal Hx Renal Disorder: No - Endocrine/Metabolic Hx Endocrine Disorders: No - Hematological/Oncological Hx Blood Disorders: No - Integumentary Hx Dermatological Disorder: No - Musculoskeletal/Rheumatological Hx Back Pain: Yes Hx Falls: No - Gastrointestinal Hx Gastrointestinal Disorders: No - Genitourinary/Gynecological Hx Genitourinary Disorders: No - Psychiatric Hx Substance Use: No Family/Social History - Physician Review Nursing Documentation Reviewed: Yes Family/Social History: No Known Family HX Smoking Status: Light Smoker < 10 Cigarettes Daily Hx Alcohol Use: Yes Hx Substance Use: No Allergies/Home Meds Allergies/Adverse Reactions: Allergies No Known Allergies Allergy (Verified 05/16/18 17:38) Review of Systems - Physician Review All systems were reviewed & negative as marked: Yes - Review of Systems Constitutional: Normal. absent: Fevers Eyes: Normal ENT: Normal Respiratory: Cough. absent: SOB Cardiovascular: Chest Pain Gastrointestinal: Normal. absent: Abdominal Pain, Diarrhea, Nausea, Vomiting Genitourinary Male: Normal Musculoskeletal: Normal. absent: Back Pain, Neck Pain Skin: Normal Neurological: Normal. absent: Headache, Dizziness Endocrine: Normal Hemo/Lymphatic: Normal Psychiatric: Normal Physical Exam Vital Signs Reviewed: Yes Vital Signs Temp Pulse Resp BP Pulse Ox 05/16/18 17:10 99.2 F 77 17 146/85 96 Temperature: Afebrile Blood Pressure: Normal Pulse: Regular Respiratory Rate: Normal Appearance: Positive for: Well-Appearing, Non-Toxic, Comfortable Pain Distress: None Mental Status: Positive for: Alert and Oriented X 3 - Systems Exam Head: Present: Atraumatic, Normocephalic Pupils: Present: PERRL Extroacular Muscles: Present: EOMI Conjunctiva: Present: Normal Mouth: Present: Moist Mucous Membranes Neck: Present: Normal Range of Motion Respiratory/Chest: Present: Good Air Exchange, Wheezes (diffuse wheezing). No: Respiratory Distress, Accessory Muscle Use, Retracting Cardiovascular: Present: Regular Rate and Rhythm, Normal S1, S2. No: Murmurs Abdomen: No: Tenderness, Distention, Peritoneal Signs Back: Present: Normal Inspection Upper Extremity: Present: Normal Inspection. No: Cyanosis, Edema Lower Extremity: Present: Normal Inspection. No: Edema Neurological: Present: GCS=15, CN II-XII Intact, Speech Normal Skin: Present: Warm, Dry, Normal Color. No: Rashes Psychiatric: Present: Alert, Oriented x 3, Normal Insight, Normal Concentration Medical Decision Making ED Course and Treatment: 05/16/18 17:15 Impression: 58 year old male presents to the Emergency Department complaining of chest pain. Differential Diagnosis included but are not limited to: chest pain r/o ACS, cough r/o pna r/o copd exacerbation Plan: -- EKG -- Labs -- Chest X-ray -- Aspirin -- Albuterol -- Solumedrol -- Rapid Flu -- Reassess and disposition Prior Visits: Notes and results from previous visits were reviewed. Progress Notes: EKG: Ordered, reviewed, and independently interpreted the EKG. Rate :71 BPM Rhythm : NSR Interpretation : No ST-segment elevations or depressions, no T-wave inversions, normal intervals. 05/16/18 18:53 Chest X-ray reviewed by radiologist, shows no active disease. 05/16/18 19:48 Patient says he no longer has chest pain. He denies shortness of breathe but still has wheezing. He has been given Alb/Atrovent x 3 and solumedrol and still has wheezing. Albuterol x1 and Azithromycin 500mg x1 ordered. Patient is a smoker and was told that he has bronchitis before; most likely COPD. Patient was recommended admission by me but does not want to stay in the hospital due having to commit to his work. 05/16/18 19:54 The patient is choosing to leave against medical advice. I have personally explained to the patient that choosing to do so may result in permanent bodily harm or . I have discussed at great length that without further evaluation and monitoring there may be unforeseen circumstances and/or deterioration causing permanent bodily harm or as a result of their choice. The patient is alert, oriented, and shows the mental capacity to make clear decisions regarding the patients health care at this time. The patient continues to wish to leave against medical advice. In light of the patients decision to leave against medical advice, follow-up has been arranged and the patient is aware of the importance to following up as instructed. The patient has been advised that they should return to the emergency room immediately if they change their mind at any time, or if their condition begins to change or worsen in any way. - RAD Interpretation Radiology Orders: 05/16/18 17:15 CHEST PORTABLE [RAD] Stat Cardiology Associate: Radiologist - Medication Orders Current Medication Orders: Albuterol/Ipratropium (Duoneb 3 Mg/0.5 Mg (3 Ml) Ud) 3 ml IH STAT STA Stop: 05/16/18 17:17 Albuterol/Ipratropium (Duoneb 3 Mg/0.5 Mg (3 Ml) Ud) 3 ml IH STAT STA Stop: 05/16/18 17:18 Aspirin (Aspirin) 325 mg PO STAT STA Stop: 05/16/18 17:16 Methylprednisolone (Solu-Medrol) 125 mg IVP STAT STA Stop: 05/16/18 17:17 - Scribe Statement The provider has reviewed the documentation as recorded by the Radha Wade. All medical record entries made by the Syedaibcuba were at my direction and personally dictated by me. I have reviewed the chart and agree that the record accurately reflects my personal performance of the history, physical exam, medical decision making, and the department course for this patient. I have also personally directed, reviewed, and agree with the discharge instructions and disposition. Disposition/Present on Arrival - Present on Arrival Any Indicators Present on Arrival: No History of DVT/PE: No History of Uncontrolled Diabetes: No Urinary Catheter: No History Surgical Site Infection Following: None - Disposition Have Diagnosis and Disposition been Completed?: Yes Diagnosis: Bronchitis, Chest pain Disposition: AGAINST MEDICAL ADVICE Disposition Time: 19:50 Condition: FAIR Discharge Instructions (ExitCare): Acute Bronchitis, Chest Pain (ED) Additional Instructions: [facility], thank you for letting us take care of you today. Your provider was Naren Boyce DO and you were treated for CHEST PAIN and Bronchitis/COPD. The emergency medical care you received today was directed at your acute symptoms. If you were prescribed any medication, please fill it and take as directed. It may take several days for your symptoms to resolve. Return to the Emergency Department if your symptoms worsen, do not improve, or if you have any other problems. Please contact your doctor or call one of the physicians/clinics you have been referred to that are listed on the Patient Visit Information form that is included in your discharge packet. Bring any paperwork you were given at discharge with you along with any medications you are taking to your follow up visit. Our treatment cannot replace ongoing medical care by a primary care provider outside of the emergency department. Thank you for allowing the [facility] team to be part of your care today. If you had an X-Ray or CT scan: A Radiologist will review the ED reading if any change in treatment is needed we will contact you. If you had a blood, urine, or wound culture: It will take several days for the results, if any change in treatment is needed we will contact you. If you had an STI test: It will take 48 hours for the results. Please call after 1 week if you have not heard back. Prescriptions: RX: Albuterol HFA [Ventolin HFA 90 mcg/actuation (8 g)] 2 puff IH Q4 #1 puff RX: Azithromycin 250 mg PO DAILY #4 tab RX: predniSONE [predniSONE Tab] 40 mg PO DAILY #8 tab RX: Promethazine/Codeine [Phenergan/Codeine Oral Syrup] 5 ml PO Q6 PRN #1 PRN Reason: Cough Referrals: Charbel Vincent MD [Staff Provider] - Follow up with primary Corey Hoffman MD [Family Provider] - Follow up with primary Forms: WORK NOTE, [facility] (Emirati)
[2018-05-16 17:32] VITALS: BMI 29.8
--- NOTE | 2018-05-16 17:46 | RAD ---
Date of service: 05/16/2018 HISTORY: chest pqain COMPARISON: Chest radiograph dated 05/14/2017. FINDINGS: LUNGS: No active pulmonary disease. PLEURA: No significant pleural effusion identified, no pneumothorax apparent. CARDIOVASCULAR: Normal. OSSEOUS STRUCTURES: Unchanged. VISUALIZED UPPER ABDOMEN: Normal. OTHER FINDINGS: None. IMPRESSION: No active disease.
[2018-05-16 18:16] LABS: BASO # 0.02 K/mm3 (0.0-2.0); BASO % 0.3 % (0.0-3.0); EOS # 0.1 (0.0-0.7); EOS % 1.8 % (1.5-5.0); GRAN # 4.67 (1.4-6.5); GRAN % 70.9 % (50.0-68.0); HEMOGLOBIN 14.7 g/dL (14.0-18.0); LYMPH # 1.3 (1.2-3.4); LYMPH % 19.1 % (22.0-35.0); MEAN CELL VOLUME 88.4 fl (80.0-105.0); MEAN CORPUSCULAR HEMOGLOBIN 30.4 pg (25.0-35.0); MEAN CORPUSCULAR HGB CONC 34.4 g/dl (31.0-37.0); MEAN PLATELET VOLUME 8.9 fl (7.0-11.0); MONO # 0.5 (0.1-0.6); MONO % 7.9 % (1.0-6.0); RBC 4.83 10^6/uL (3.5-6.1); RED CELL DISTRIBUTION WIDTH 14.9 % (11.5-14.5); WHITE BLOOD COUNT 6.6 10^3/ul (4.5-11.0)
[2018-05-16 18:25] LABS: INR 1.13; PROTHROMBIN TIME 12.9 SECONDS (9.4-12.5)
[2018-05-16 18:37] LABS: ALB/GLOB RATIO 1.4 (1.1-1.8); ALBUMIN 3.7 g/dL (3.0-4.8); ALT/SGPT 25 U/L (7-56); AST/SGOT 32 U/L (17-59); BLOOD UREA NITROGEN 11 mg/dL (7-21); CALCIUM 8.6 mg/dL (8.4-10.5); GFR NON-AFRICAN AMERICAN > 60
[2018-05-16 18:48] LABS: B-TYPE NATRIURETIC PEPTIDE 368 pg/mL (0-450); TROPONIN I < 0.01 ng/mL
[2018-05-16 19:08] LABS: CK-MB 1.9 ng/mL (0.0-3.6)
[2018-05-16] MEDS ORDERED: Albuterol 0.083% Inhal Sol (2.5 mg/3 mL) UD IH STA (19:44)
[2018-05-16 21:01] VITALS: BP 143/73; PULSE 72; RESP 16; O2SAT 100
--- NOTE | 2018-05-17 10:02 | CARD ---
APPROVED REPORT Date of service: 05/16/2018 EKG Measurement Heart [id number] <Conclusion> Normal sinus rhythm Normal ECG No change
== END 2018-05-16 20:39 | disposition left against medical advice (07) ==
LOC: ED 16:47
DX: J40 Bronchitis, not specified as acute or chronic (principal); R07.9 Chest pain, unspecified; E78.5 Hyperlipidemia, unspecified; F17.210 Nicotine dependence, cigarettes, uncomplicated
CPT/HCPCS: 71045; 80053; 82550; 82553; 83615; 83735; 83880; 84484; 85025; 85610; 85730; 87804; 93005; 96374; 99285; J2930